=== PATIENT | female | born 1970 | race Caucasian/White ===

== ENCOUNTER 2023-12-31 10:39 | Emergency (ER) | payer BC, SELFPAY ==
--- NOTE | ~2023-12-31 | CT_ITS ---
CT of the Abdomen and Pelvis: Indication: Abdominal pain Technique: 2.5 mm axial scans were obtained through the abdomen and pelvis following intravenous adm inistration of 100 cc of Omnipaque 350. Dose reduction technique was used on this scan by utilizing a utomated exposure control and iterative reconstruction technique. The dose-length product (DLP) was 4 30.44 mGy-cm. Findings: Scans through the lung bases are unremarkable. The liver, spleen, pancreas, gallbladder, adrenals and kidneys are within normal limits. No evidence of aortic aneurysm. No lymphadenopathy. Questionable mild wall thickening of the stomach. No bowel obstruction. There is no evidence to sugge st acute appendicitis. Images through the pelvis were performed. Urinary bladder unremarkable. Uterine fibroids are present. Right ovarian cyst measures 2.6 cm in diameter. Impression: . Questionable bowel wall thickening of the stomach, especially gastric antrum. Correlate for gastrit is or possibly peptic ulcer disease. Uterine fibroids and 2.6 cm right ovarian cyst. Reviewed, dictated and finalized at [facility]. Impression: . Questionable bowel wall thickening of the stomach, especially gastric antrum. Correlate for gastritis or possibly peptic ulcer disease. Uterine fibroids and 2.6 cm right ovarian cyst.
[2023-12-31 10:48] VITALS: BP 119/63; PULSE 80; RESP 20; TEMP 36.7; O2SAT 100
[2023-12-31 11:05] LABS: Basophils Percent Auto 0.2 % (0.2-1.2); Eosinophils Percent Auto 0.2 % (0-4.4); Hemoglobin 9.1 g/dL (12.0-15.0); Immature Granulocyte Absolute 0.09 K/mm3 (0.00-0.031); Immature Granulocyte Percent A 0.6 % (0-0.5); Lymphocytes Absolute Auto 2.86 K/mm3 (0.9-3.2); Lymphocytes Percent Auto 17.7 % (18.3-44.2); Mean Corpuscular HGB Conc 33.7 g/dl (32-36); Mean Corpuscular Hemoglobin 29.4 pg (26-34); Mean Corpuscular Volume 87.1 fl (80-100); Mean Platelet Volume 9.8 fl (7.4-10.4); Monocytes Absolute Auto 1.3 K/mm3 (0.1-0.6); Monocytes Percent Auto 7.7 % (2.6-8.5); Neutrophils Absolute Auto 11.9 K/mm3 (1.3-6.7); Neutrophils Percent Auto 73.6 % (45.5-73.1); Nucleated Red Blood Cells Perc 0.1 % (0.0-0.2); Platelet Count Result 530 k/mm3 (150-375); Red Cell Distribution Width 11.8 % (11.5-14.5); White Blood Count 16.2 K/mm3 (4.5-10.0)
[2023-12-31 11:20] LABS: Alanine Aminotransferase 22 U/L (6-35); Alkaline Phosphatase 76 U/L (38-126); Anion Gap 9 mmol/L (4-12); Aspartate Amino Transferase 25 U/L (14-36); Bilirubin,Total 0.4 mg/dL (0.2-1.3); Blood Urea Nitrogen 24 mg/dL (7-17); Carbon Dioxide 39 mmol/L (22-30); Chloride 88 mmol/L (98-107); Estimated CRCL calculation 47 ml/min; Estimated Glomerular Filt Rate 52; Glucose 131 mg/dL (65-110); Lipase 262 U/L (23-300); Potassium 3.2 mmol/L (3.4-5.0); Sodium 136 mmol/L (137-145)
[2023-12-31] MEDS: SODIUM CHLORIDE 0.9% IV 1,000 ML 999 ML IV CONT ×2 (11:38→14:13)
[2023-12-31] MEDS: PROCHLORPERAZINE EDISYLATE 10 MG/2 ML VIAL IV PUSH (11:39)
[2023-12-31] MEDS: MORPHINE SULFATE (*CRX) 4 MG/ML INJ IV PUSH (11:39)
--- NOTE | 2023-12-31 12:24 | ED.GENADULT ---
HPI - General Adult General Chief complaint: Nausea/Vomiting/Diarrhea Stated complaint: N/V Time Seen by Provider: 12/31/23 10:45 History of Present Illness HPI narrative: Patient 53-year-old female who presents emergency department with chief complaint of abdominal pain nausea vomiting. Patient reports for the last 16 days she has not been able to keep anything down patient reports that she was seen at [facility] had laboratory studies and a CT scan the patient was told was most likely a virus and was discharged home the patient reports she has continued to vomit and has not been able to keep fluids or food down. Related Data Allergies Allergy/AdvReac Type Severity Reaction Status Date / Time bacitracin Allergy Rash Verified 12/31/23 10:54 [From Neosporin ([id number])] hydrocortisone Allergy Rash Verified 12/31/23 10:54 neomycin Allergy Rash Verified 12/31/23 10:54 [From Neosporin ([id number])] polymyxin B Allergy Rash Verified 12/31/23 10:54 [From Neosporin ([id number])] Review of Systems Review of Systems: A 10 system review of systems was completed on the patient and is negative except for what is stated in the HPI. Nursing and ancillary documentation was reviewed. Exam Narrative: GENERAL: Well-appearing, well-nourished, and in no acute distress. HEAD: Normocephalic, atraumatic. EYES: PERRLA and EOMI. ENT: Nares clear, no rhinorrhea or epistaxis. Mucous membranes moist. NECK: Supple. CHEST: Clear to auscultation. No respiratory distress. HEART: Regular rate and rhythm. No murmur heard. Normal peripheral pulses. ABDOMEN: Soft, diffusely tender to palpation, nondistended, normal active bowel sounds. EXTREMITIES: Normal range of motion. No edema. SKIN: Warm, dry, no rash. NEURO: No focal deficits. Alert and oriented x3. PSYCH: Normal mood and affect. Course Vital Signs Vital signs: Vital Signs Temperature 36.7 C 12/31/23 10:48 Pulse Rate 80 12/31/23 10:48 Respiratory Rate 20 12/31/23 10:48 Blood Pressure 119/63 12/31/23 10:48 Pulse Oximetry 100 12/31/23 10:48 Oxygen Delivery Room Air 12/31/23 10:48 Temperature 36.7 C 12/31/23 10:48 Pulse Rate 80 12/31/23 10:48 Respiratory Rate 20 12/31/23 10:48 Blood Pressure 119/63 12/31/23 10:48 Pulse Oximetry 100 12/31/23 10:48 Oxygen Delivery Room Air 12/31/23 10:48 Medical Decision Making MDM Narrative Medical decision making narrative: Differential diagnosis includes gastritis, intra-abdominal infection, intestinal perforation, dehydration, gastroenteritis Laboratory studies were obtained showed a white count of 16.2 hemoglobin was 9.1 electrolytes showed a potassium of 3.2 CO2 was 39 BUN was 24 and creatinine was 1.1 urinalysis showed a specific gravity of greater than 1.045 and 1+ protein CT scan showed Questionable bowel wall thickening of the stomach, especially gastric antrum. Correlate for gastritis or possibly peptic ulcer disease. Uterine fibroids and 2.6 cm right ovarian cyst. Patient received 2 L normal saline boluses IV Protonix and p.o. GI cocktail the patient will be discharged home on Protonix and Carafate she also be given a prescription for Phenergan suppositories Vital Signs Vital Signs: Vital Signs Temperature 36.7 C 12/31/23 10:48 Pulse Rate 80 12/31/23 10:48 Respiratory Rate 20 12/31/23 10:48 Blood Pressure 119/63 12/31/23 10:48 Pulse Oximetry 100 12/31/23 10:48 Oxygen Delivery Room Air 12/31/23 10:48 Temperature 36.7 C 12/31/23 10:48 Pulse Rate 80 12/31/23 10:48 Respiratory Rate 20 12/31/23 10:48 Blood Pressure 119/63 12/31/23 10:48 Pulse Oximetry 100 12/31/23 10:48 Oxygen Delivery Room Air 12/31/23 10:48 Lab Data 12/31/23 10:55 12/31/23 10:55 Labs: Lab Results 12/31/23 12/31/23 Range/Units 10:55 12:39 WBC 16.2 H (4.5-10.0) K/mm3 RB
[2023-12-31 13:08] LABS: Appearance Urine Cloudy (Clear); Color Urine Yellow (Yellow)
[2023-12-31 13:09] LABS: Bilirubin Urine Negative (Negative); Blood Urine Negative (Negative); Glucose Urine UA Negative (Negative); Ketones Urine Negative (Negative); Nitrate Urine Negative (Negative); Protein Urine 1+ mg/dL (Negative); Specific Grav Ur > 1.045 (1.001-1.035)
[2023-12-31 13:10] LABS: Add Urine Microscopic? NO; Leukocyte Esterase Ur Negative LEU/UL (Negative)
[2023-12-31] MEDS: BELLADONNA ALK/PHENOB ELIX 10 ML, MAG HYDROX/ALUMINUM HYD/SIMETH 30 ML, LIDOCAINE HCL 2... PO (14:38)
[2023-12-31] MEDS: PANTOPRAZOLE SODIUM IV 40 MG VIAL IV PUSH (14:38)
[2023-12-31 14:40] VITALS: BP 110/58; PULSE 75; RESP 13; O2SAT 100
[2023-12-31 14:50] VITALS: PULSE 69; RESP 15; O2SAT 100
[2023-12-31 15:30] VITALS: BP 108/72; PULSE 85; RESP 16; O2SAT 100
== END 2023-12-31 15:46 | disposition home or self-care (01) ==
PROVIDERS: Emergency Provider Emergency Medicine; PCP Internal Medicine
DX: K29.70 Gastritis, unspecified, without bleeding (principal)
CPT/HCPCS: 36415; 74177; 80053; 81001; 81003; 83690; 85025; 96361; 96374; 96375; 99284; A9270; J0780; J2270; J2470; J7030; Q9967